=== PATIENT | male | born 1970 | race Caucasian/White ===

== ENCOUNTER 2020-10-06 14:31 | Emergency (ER) | payer MEDICAID ==
[~2020-10-06] VITALS: Ht 170.2 cm; Wt 122.0 kg
--- NOTE | 2020-10-06 14:42 | NUR ---
BIBRA 89 FELL FROM 10FT LADDER -KO + RT ANKLE DEFORMITY. PT AAOX4, VSS. RR EVEN & UNLABORED. DENIES CP, SOB, DIZZINESS, N/V AT THIS TIME. AWAITING EVAL BY [place]. WILL CONT TO MONITOR.
[2020-10-06] MEDS ORDERED: ONDANSETRON HCL/PF 4 MG/2 ML VIAL ONE (14:46)
[2020-10-06] MEDS ORDERED: MORPHINE SULFATE INJ 4 MG/ML DISP.SYRIN ONE (14:46)
[2020-10-06] MEDS ORDERED: PROPOFOL 20 ML IV ONE (14:57)
[2020-10-06] MEDS ORDERED: ONDANSETRON HCL/PF 4 MG/2 ML VIAL IVP ONE (15:00)
[2020-10-06] MEDS ORDERED: MORPHINE SULFATE INJ 2 MG/ML DISP.SYRIN IV ONE (15:00)
[2020-10-06] MEDS ORDERED: CEFAZOLIN 1 GM in IV D5W 50 ML IV ONE (15:00)
[2020-10-06] MEDS ORDERED: PROPOFOL 200 MG/20 ML VIAL IV ONE (15:00)
--- NOTE | 2020-10-06 15:14 | NUR ---
PT AAOX4, VSS. RR EVEN & UNLABORED. DENIES ANY OTHER DISCOMFORT AT THIS TIME. RELATIVE AT BS. WILL CONT TO MONITOR.
[2020-10-06] MEDS ORDERED: HYDROMORPHONE 1 MG/1 ML DISP.SYRIN ONE (15:24)
[2020-10-06] MEDS ORDERED: HYDROMORPHONE INJ 2 MG/ML DISP.SYRIN IV ONE (15:30)
--- NOTE | 2020-10-06 15:43 | NUR ---
CALLED DR. MATTHEWS [phone]
[2020-10-06] MEDS ORDERED: HYDR-3972 PO (16:01)
[2020-10-06] MEDS ORDERED: CEPH500C2 PO (16:03)
[2020-10-06] MEDS ORDERED: TDAP [DIPH/PERTUSSIS/TET] 0.5 ML VIAL IM ONE ×2 (17:16→17:30)
--- NOTE | 2020-10-06 17:35 | NUR ---
Patient discharged to home in stable condition. Written and verbal after care instructions given. Patient verbalizes understanding of instruction. IV removed. Catheter intact and site benign. Pressure and 4x4 applied to site. No bleeding noted.
[2020-10-06 17:36] VITALS: BP 166/77
== END 2020-10-06 17:36 | disposition home or self-care (01) ==
LOC: ER 14:35
DX: S82.51XB Displaced fracture of medial malleolus of right tibia, initial encounter for open fracture type I or II (principal); S92.151A Displaced avulsion fracture (chip fracture) of right talus, initial encounter for closed fracture; S92.021A Displaced fracture of anterior process of right calcaneus, initial encounter for closed fracture; S92.211A Displaced fracture of cuboid bone of right foot, initial encounter for closed fracture; S92.351A Displaced fracture of fifth metatarsal bone, right foot, initial encounter for closed fracture; S93.04XA Dislocation of right ankle joint, initial encounter; S80.811A Abrasion, right lower leg, initial encounter; W11.XXXA Fall on and from ladder, initial encounter; Y93.89 Activity, other specified; Y92.89 Other specified places as the place of occurrence of the external cause; Y99.8 Other external cause status
CPT/HCPCS: 28435; 73610 ×2; 73700; 96365; 96375; 99152; 99285; A6403; J0690; J1170; J2270; J2405; J2704; J7060; 90715; G0500